=== PATIENT | male | born 1950 | race Caucasian/White ===

== ENCOUNTER → 2023-09-27 09:45 | Outpatient (REF) | payer OTHER, SELFPAY | LOC: RAD 09:45 | PROVIDERS: ATTENDING PHYSICIAN Internal Medicine | DX: K70.10 Alcoholic hepatitis without ascites (principal) | CPT/HCPCS: 76700 ==

== ENCOUNTER → 2024-01-03 13:43 | Outpatient (REF) | payer OTHER, SELFPAY | LOC: MRI 13:43 | PROVIDERS: ATTENDING PHYSICIAN Internal Medicine | DX: K76.89 Other specified diseases of liver (principal) | CPT/HCPCS: 74183; A9581 ==

== ENCOUNTER → 2024-01-04 15:03 | Outpatient (REF) | payer OTHER, SELFPAY | LOC: HWRAD 15:03 | PROVIDERS: ATTENDING PHYSICIAN Nurse Practitioner Primary Care; FAMILY PHYSICIAN Internal Medicine | DX: R55 Syncope and collapse (principal); S06.0X1A Concussion with loss of consciousness of 30 minutes or less, initial encounter; G44.319 Acute post-traumatic headache, not intractable | CPT/HCPCS: 70450 ==

== ENCOUNTER → 2024-01-07 07:20 | Outpatient (REF) | payer OTHER, SELFPAY | LOC: EEG 07:20 | PROVIDERS: ATTENDING PHYSICIAN Nurse Practitioner Primary Care | DX: R55 Syncope and collapse (principal); S06.0X1A Concussion with loss of consciousness of 30 minutes or less, initial encounter; F10.99 Alcohol use, unspecified with unspecified alcohol-induced disorder | CPT/HCPCS: 95813 ==

== ENCOUNTER → 2024-01-10 08:29 | Outpatient (REF) | payer OTHER, SELFPAY | LOC: HWRAD 08:29 | PROVIDERS: ATTENDING PHYSICIAN Nurse Practitioner Primary Care | DX: G44.319 Acute post-traumatic headache, not intractable (principal); R55 Syncope and collapse | CPT/HCPCS: 93880 ==

== ENCOUNTER → 2024-03-07 13:24 | Outpatient (REF) | payer OTHER, SELFPAY | LOC: MRI 13:24 | PROVIDERS: ATTENDING PHYSICIAN Nurse Practitioner Primary Care | DX: R55 Syncope and collapse (principal); G44.319 Acute post-traumatic headache, not intractable; S06.0X1A Concussion with loss of consciousness of 30 minutes or less, initial encounter | CPT/HCPCS: 70553; A9575 ==

== ENCOUNTER 2025-01-04 20:44 | Emergency (ER) | payer OTHER, SELFPAY ==
[2025-01-04] VITALS (11 sets, daily range): BP systolic 79–111; BP diastolic 41–67; BMI 28.6
[2025-01-04] MEDS: ZOFRAN 4 MG IV (20:52)
[2025-01-04 21:16] LABS: Hematocrit 32.3 % (39.0-52.0); Hemoglobin 11.1 g/dL (13.0-18.0); Mean Corp Hgb Conc. 34.4 g/dL (33.0-37.0); Mean Corpuscular Volume 91.0 fL (80.0-94.0); Nucleated Red Blood Cells % 0 % (-); Platelet Count 131 10^3/uL (130-400); Red Cell Dist. Width 13.4 % (11.5-14.5)
[2025-01-04 21:27] LABS: Blood Urea Nitrogen 25 mg/dl (9-20); Calcium 9.2 mg/dl (8.4-10.2); Carbon Dioxide 23 mmol/L (22-30); Chloride 99 mmol/L (98-107); Estimated Creatinine Clearance 41 ml/min; Glucose 141 mg/dl (70-99); Sodium 138 mmol/L (135-145); eGFR 44.65
[2025-01-04 21:35] LABS: Troponin I 0.013 ng/ml
[2025-01-05] VITALS: BP 112/63
[2025-01-05 00:20] VITALS: BP 113/65
[2025-01-05 00:40] VITALS: BP 107/57
[2025-01-05 01:00] VITALS: BP 118/72
--- NOTE | 2025-01-05 01:07 | ED.GENMED ---
History of Present Illness
General
Chief Complaint: Cardiac Symptoms
Source: patient and ambulance crew
Time Seen by Provider: 01/04/25 20:54
History of Present Illness
History of Present Illness:
Note:
CHIEF COMPLAINT(S)
Syncope after consuming alcohol and smoking cannabis.
HISTORY OF PRESENT ILLNESS
The patient, a 74yo male, attended a [employer] where he consumed a couple of glasses of wine and smoked a joint. Following this, he experienced two episodes of syncope in front of his spouse. According to EMS, the patient presented as extremely pale
with a blood pressure of 80s/40s. A 500 ml fluid bolus was initiated but inadequate response was observed, necessitating administration of a push dose epinephrine, with a total of 8 micrograms administered. This intervention elevated his blood
pressure to slightly above 100, while a low-dose epinephrine drip maintained it in the 90s. The pacemaker activated, bringing his heart rate to the 60s.
Onset of symptoms included feeling light-headed and dizzy on his way home, nearly fainting but managing to reach home safely with the desire to go to bed, which led to his spouse calling for medical assistance. The patient denied experiencing chest
pain but reported feeling 'spinny' and lightheaded.
The patient acknowledged faint nausea before receiving treatment for it. No chest pain was reported, but there was a sensation of intoxication.
PAST MEDICAL AND SURGICAL HISTORY
History of a heart condition requiring an automatic implantable cardioverter-defibrillator (AICD) and five coronary artery stents.
ALLERGIES
Penicillin.
CONSTITUTIONAL Patient alert and oriented to person, place and time. Appears intoxicated. Vital signs reviewed. Slightly pale
HEAD atraumatic, normocephalic.
EYES eyelids normal to inspection, Extraocular muscles intact, Conjunctiva normal, Sclera normal.
NECK normal range of motion, Trachea midline, no jugular venous distention.
RESPIRATORY CHEST No respiratory distress noted, Chest expansion equal, Bilateral breath sounds clear.
CARDIOVASCULAR regular rate and rhythm, Heart sounds normal.
ABDOMEN abdomen nontender, Bowel sounds normal. No distention.
BACK normal inspection, no obvious deformities
UPPER EXTREMITY range of motion normal, Motor strength normal, no cyanosis, no edema.
LOWER EXTREMITY range of motion normal, Motor strength normal, no cyanosis, no edema.
NEURO Speech normal, No focal motor deficits, Kaila coma scale 15, Memory normal, Cranial Nerves intact to screening exam.
SKIN skin warm, dry, and normal in color.
PLAN
Administer antiemetics (e.g., Zofran) to manage nausea.
Monitor patients cardiovascular status, focusing on stabilizing blood pressure and heart rate.
Continue observation until stabilization prior to further disposition decisions.
Avoid further alcohol and cannabis use.
DIFFERENTIAL DIAGNOSIS
The Differential Diagnosis includes, in no particular order and is not limited to:
1. Syncope due to alcohol and cannabis interaction.
2. Orthostatic hypotension.
3. Cardiac arrhythmia.
4. Vasovagal syncope.
5. Drug-induced hypotension.
6. Cardiogenic syncope.
7. Postprandial hypotension.
8. Dehydration contributing to syncope.
9. Acute coronary syndrome.
10. Neurological syncope.
EKG
My independent EKG interpretation is:
- Rhythm: Ventricular paced rhythm
- Heart Rate: Normal rate
- Other Notable Findings: No abnormalities identified in the nursing scheduler
Disposition:
SUMMARY OF ENCOUNTER
The patient, a 74-year-old male with a history of coronary artery disease, presented to the emergency department after consuming several glasses of wine, cannabis, and an alcohol juice. He experienced nausea and vomiting twice, alongside hypotension
and diaphoresis. His hypotensive state was possibly due to increased vagal tone in response to substance use. During his ED stay, he was observed for four to five hours. Initial vital signs showed significant hypotension, but intravenous fluids were
administered, which improved his condition. Blood pressure improved to 118 systolic and the patient was able to ambulate without difficulty. Pacemaker was interrogated and showed no acute events
DISPOSITION
Discharge for outpatient management.
ASSESSMENT
The patients symptoms were likely due to the interaction between alcohol and cannabis use, causing a vagal response.
EMERGENCY TREATMENTS ADMINISTERED
Intravenous fluids were administered to address hypotension.
PLAN
Avoid further alcohol and cannabis use. Monitor cardiovascular status and ensure stability prior to discharge.
INDEPENDENT REVIEW OF LABS AND INTERPRETATION OF TESTS
My independent review of CBC indicates a baseline white blood cell count of 11.1.
My independent review of BMP shows a mild bump with elevated creatinine of 1.6, glucose at 141, and sodium level not detailed due to specimen hemolysis.
Alcohol level independently reviewed as 127.
MEDICAL DECISION MAKING
- Complexity of Data Reviewed: Chronic conditions affecting care including coronary artery disease. Differential diagnoses include:
1. Syncope due to alcohol and cannabis interaction.
2. Orthostatic hypotension.
3. Cardiac arrhythmia.
4. Vasovagal syncope.
5. Drug-induced hypotension.
6. Cardiogenic syncope.
7. Postprandial hypotension.
8. Dehydration contributing to syncope.
9. Acute coronary syndrome.
10. Neurological syncope.
- Data:
Category 1
- My independent EKG interpretation: Ventricular paced rhythm observed with a normal heart rate, no abnormalities identified.
Category 3
- Management decisions based on improvement in hemodynamic stability and patients ability to ambulate without difficulties. Discussed plan for discharge after stabilization.
- Risk:
Consideration of Admission/Observation: Although an escalation of care was considered due to the patients condition and underlying comorbidities, improvement in symptoms, vital signs stability, and patients ability to ambulate safely justified
outpatient management with close follow-up. Prescription medication was prescribed to ensure stability.
DIAGNOSIS
1. Drug-induced hypotension (ICD-10: T43.601A)
2. 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
3. History of coronary artery disease (ICD-10: I25.10)
Past History
Past History
ED Past Medical History: Hypercholesterolemia, Other and Other
ED Past Surgical History: Orthopedic
Social History
Personal:
Living: with family
Phy Exam
Physical Exam
Physical Exam:
.
Course
Orders/Labs/Results
Orders:
Orders
01/04/25 20:50
Ondansetron Injectable [Zofran] 4 mg .ROUTE .STK-MED ONE
01/04/25 20:52
Ondansetron Injectable [Zofran] 4 mg IV NOW STA
01/04/25 20:53
Electrocardiogram (*1) Urgent
Reason for Study: Chest Pain
Cardiac Monitoring- Treatment ONCE
EKG- Treatment ONCE
IV Insert/Care/Rem.- Treatment PRN
O2 Therapy [RESP] Urgent
Titrate/Wean O2 to maintain O2 sat greater than (%): 90
Special Instructions: Maintain sats >/=90%
Pulse Ox/spot Check [RESP] Urgent
Quantity: 1
Special Instructions: ON ROOM AIR
01/04/25 20:54
Ondansetron Injectable [Zofran] 4 mg IV NOW STA
01/04/25 20:55
Alcohol Urgent
Basic Metabolic Panel Urgent
Complete Blood Count/With Diff Urgent
Troponin I Urgent
Abnormal Lab Results
01/04/25
20:55
WBC 4.4 L 10^3/uL
(4.8-10.8)
RBC 3.55 L 10^6/uL
(4.70-6.10)
Hgb 11.1 L g/dL
(13.0-18.0)
Hct 32.3 L %
(39.0-52.0)
MCH 31.3 H pg
(27.0-31.0)
MPV 10.5 H fL
(7.4-10.4)
Monocytes % 10.1 H %
(1.7-9.3)
BUN 25 H mg/dl
(9-20)
Creatinine 1.6 H mg/dL
(0.7-1.3)
Glucose 141 H mg/dl
(70-99)
01/04/25 20:55
01/04/25 20:55
Vital Signs
Initial and Last Documented VS:
Initial Vital Signs
Temp Pulse Resp BP Pulse Ox
97.5 F 62 18 79/64 98
01/04/25 20:46 01/04/25 20:46 01/04/25 20:46 01/04/25 20:46 01/04/25 20:46
Last Documented Vital Signs
Temp Pulse Resp BP Pulse Ox
97.5 F 61 16 96/55 98
01/04/25 20:46 01/04/25 20:51 01/04/25 20:51 01/04/25 20:51 01/04/25 20:51
*Pulse Oximetry
SaO2: 98
Oxygen Mode of Delivery: Room air
Patient hypoxic: no
*Critical Care Note
Total Time (30-74mins, 75-104mins- exclusive of procedures): Not Applicable
ED Attending Note
-
Portions of this chart may have been created with voice recognition software.� Occasional wrong word or��sound alike� substitutions may have occurred due to the inherent limitations of voice recognition software.
Discharge Plan
Departure
Patient Disposition: Home (Routine Discharge)
Date of Disposition: 01/05/25
Time of Disposition: 01:12
Patient with high blood pressure during this ER visit?: No
Discharge Problem:
Acute alcohol intoxication, Cannabis abuse, Acute hypotension, Acute renal insufficiency
Instructions: Alcohol intoxication - ED (DC), Acute kidney injury
Prescriptions:
No Action
aspirin 81 MG tablet,delayed release (DR/EC)
81 mg PO DAILY
Prostate 2.4 1 EACH capsule
1 ea PO DAILY
nitroglycerin 0.4 MG tablet, sublingual
0.4 mg sublingual [id number] PRN (Reason: chest pain) Qty: 25 2RF
Patient Comments:
pt has never needed to take
omega-3 fatty acids Capsule
1,000 mg PO DAILY
rosuvastatin [Crestor] 40 mg tablet
40 mg PO HS Qty: 30 0RF
ascorbic acid (vitamin C) [Vitamin C] 500 mg Tablet
500 mg PO DAILY
lisinopril-hydrochlorothiazide 20-25 mg Tablet
1 tab PO DAILY
cholecalciferol (vitamin D3) 100 mcg (4,000 unit) Capsule
1 unit PO DAILY
metoprolol succinate [Toprol XL] 100 mg tablet extended release 24 hr
100 mg PO DAILY Qty: 90 5RF
metoprolol succinate 50 mg Tablet Extended Release 24 Hr
50 mg PO QPM Qty: 0 0RF
Referrals:
Manju Heredia CRNP [Family Provider, Internal Medicine]
Activity Restrictions/Additional Instructions:
Please drink plenty fluids and avoid alcohol or marijuana use. Please have your doctor repeat your blood work in the next 1 to 2 weeks to ensure that your kidney function has improved as it was abnormal today. Return immediately for chest pain,
shortness of breath, weakness of any kind, vomiting, or any other concerns
Interventions
Interventions:
*Risk Screen - Suicide Last Done: 01/04/25 20:57
*General Assessment Last Done: 01/04/25 20:57
*Neglect/Abuse Screening Last Done: 01/04/25 20:57
*ED- Fall Risk Assessment Last Done: 01/04/25 20:57
*ED COVID-19 Vaccine History Last Done: 01/04/25 20:57
*ED Influenza Vaccine History Last Done: 01/04/25 20:57
ED- Pulmonary Assessment Last Done: 01/04/25 20:57
ED- Cardiac Assessment Last Done: 01/04/25 20:57
Discharge Date and Time
Print Language: TURKISH
[2025-01-05 01:49] LABS: Potassium 3.9 mmol/L (3.5-5.1)
== END 2025-01-05 02:11 | disposition home or self-care (01) ==
LOC: EMR 20:44
PROVIDERS: EMERGENCY PHYSICIAN Emergency Medicine; FAMILY PHYSICIAN Nurse Practitioner Primary Care; REFERRING PHYSICIAN Internal Medicine Cardiovascular Disease
DX: F10.129 Alcohol abuse with intoxication, unspecified (principal); F12.10 Cannabis abuse, uncomplicated; I95.9 Hypotension, unspecified; N28.9 Disorder of kidney and ureter, unspecified; I25.10 Atherosclerotic heart disease of native coronary artery without angina pectoris; E78.00 Pure hypercholesterolemia, unspecified; Y90.6 Blood alcohol level of 120-199 mg/100 ml; Z95.810 Presence of automatic (implantable) cardiac defibrillator; Z95.5 Presence of coronary angioplasty implant and graft; Z88.0 Allergy status to penicillin
CPT/HCPCS: 99284; 96374; 93288; 80048; 82077; 84132; 84484; 85025; 93005